=== PATIENT | female | born 1955 | race Caucasian/White ===

== ENCOUNTER 2017-04-26 12:06 | Day surgery (SDC) | payer BC ==
[2017-04-26] MEDS ORDERED: MUPIROCIN 2% OINT 1 APPLIC/GM SYR NASAL SCH (12:30)
[2017-04-26] MEDS ORDERED: ceFAZolin 2 GM PREMIX 50 ML IV SCH (12:30)
[2017-04-26] MEDS ORDERED: POVIDONE IODINE 5% (ANTISEPSIS KIT) 4 APPLICATIONS EACH NARE SCH (12:30)
[2017-04-26] MEDS ORDERED: CHLORHEXIDINE GLUCONATE 2 % 1 PACK (2 CLOTHS) TOPICAL SCH (12:30)
[2017-04-26] MEDS ORDERED: NS 1000 ML IV SCH (12:30)
[2017-04-26] MEDS ORDERED: LISI-515 PO (12:55)
[2017-04-26] MEDS ORDERED: LIPI10TA PO (12:55)
[2017-04-26] MEDS ORDERED: HYDR12.56 PO (12:55)
[2017-04-26] MEDS ORDERED: ASPI-183 PO (12:55)
[2017-04-26] MEDS ORDERED: SERT-132 PO (12:55)
[2017-04-26] MEDS ORDERED: OMEP20TA93 PO (12:55)
[2017-04-26] MEDS ORDERED: MIDAZOLAM HCL 2 MG/2 ML VIAL ONE (13:18)
--- NOTE | 2017-04-26 14:13 | MP ---
cc: SIMON BLANDON DATE OF SURGERY: 04/26/2017 INDICATION CVA, evaluation for atrial fibrillation. PROCEDURE PERFORMED 1. Placement of Medtronic Reveal LINQ MRI compatible loop monitor. 2. Moderate sedation. MEDICATIONS Versed Fentanyl PROCEDURE After the patient was sedated, the left chest was prepped and draped in the usual sterile manner. Local anesthesia was administered. Medtronic Reveal LINQ MRI compatible loop monitor was placed without difficulty to the left anterior chest. R-wave was 0.97 mV. The patient was discharged home in stable condition. EQUIPMENT USED Medtronic Reveal LINQ MRI compatible loop monitor, serial number [id number]. COMPLICATIONS None. BLOOD LOSS Less than 10 cc. DIAGNOSIS Successful placement of Medtronic Reveal LINQ MRI compatible loop monitor. DISPOSITION Ms. Saenz will continue her current medical program. We will initiate long-term monitoring of her device. I will see her back for followup in our office after discharge. MD EMMA Ward/TAQUERIA /1:47 PM /2:04 PM [email or web address]
== END 2017-04-26 14:55 | disposition home or self-care (01) ==
LOC: HDOC 12:06 → HDIC 12:07 → HDOC 14:55
PROVIDERS: ATTEND Internal Medicine Interventional Cardiology
DX: I63.432 Cerebral infarction due to embolism of left posterior cerebral artery (principal); I10 Essential (primary) hypertension; E78.5 Hyperlipidemia, unspecified
CPT/HCPCS: 33282; C1764; J0690; J2250; J3010